=== PATIENT | male | born 1990 | race Caucasian/White ===

== ENCOUNTER 2019-06-15 12:27 | Outpatient (CLI) | payer BC ==
[~2019-06-15 12:27] MED LIST: EPINEPHrine 1 MG/ML AMP ONE; Gadobenate Dimeglumine 529 MG/1 ML (20ML VIAL) ONE; Iopamidol 300 61% 100 ML VIAL FS ONE; Lidocaine 1% PF 10 ML AMP ONE
--- NOTE | 2019-06-15 13:50 | RAD ---
EXAM: Right shoulder arthrogram PROVIDED CLINICAL HISTORY: Right shoulder pain. Subacromial impingement right shoulder, SLAP tear. COMPARISON: None TECHNIQUE: The procedure including the risks and complications were explained to the patient, and informed conse nt was obtained. Patient was placed on the fluoroscopy table in the supine position. The right shoulder was placed in external rotation, and an area was marked overlying the upper one third of the right glenohumeral joint. The skin and subcutaneous tissues were infiltrated with buffered 1% lidocaine for local anesthesia. A 22-gauge spinal needle was advanced into the right glenohumeral joint. The inner stylette was removed, and a small amount of contrast was injected confirming free flow of contrast away from the t ip of the needle. Approximately 12 mL of a mixture initially containing 2 mL of gadolinium contrast, 8 mL of Isovue-300 contrast, sterile water, lidocaine, a small amount of epinephrine was in stilled into the right glenohumeral joint. The needle was removed, and hemostasis was achieved with direct pressure. The patient tolerated the procedure well and without immediate complication. FINDINGS: Mild right acromioclavicular joint osteoarthritis is noted. There is no fracture, dislocation, or oth er osseous abnormality. A right shoulder arthrogram was successfully performed. IMPRESSION: Technically successful right shoulder arthrogram.
--- NOTE | 2019-06-15 14:15 | MRI ---
MRI Upper Ext Jt Rt W Con HISTORY: Shoulder pain. Pain for 2 years that is progressing. Subacromial impingement. COMPARISON: None. FINDINGS: There is mild to moderate arthrosis changes of the AC joint. The acromion is minimally down sloping. The supra as well as infraspinatus tendons are intact. The subscapularis muscle and tendon are normal in appearance and the biceps tendon is normal in posit ion within the bicipital groove. The bicipital labral complex is normal in appearance. There is no evidence of any SLAP type tear. The intra-articular portion of the biceps tendon is normal. The inferior glenohumeral ligamentous and labral complex are normal. IMPRESSION: 1. Mild to moderate arthrosis of the AC joint with a minimally laterally downsloping acromion 2. No evidence of rotator cuff or labral tear.
== END 2019-06-15 12:28 | disposition home or self-care (01) ==
LOC: RAD 12:27
PROVIDERS: ATTEND Orthopaedic Surgery
DX: S43.431A Superior glenoid labrum lesion of right shoulder, initial encounter (principal); M75.41 Impingement syndrome of right shoulder; M19.011 Primary osteoarthritis, right shoulder
CPT/HCPCS: 23350; A9577; J0171; J2001; Q9967